=== PATIENT | female | born 1955 | race Asian ===

== ENCOUNTER 2018-10-21 12:20 | Emergency (ER) | payer OTHER ==
[~2018-10-21] VITALS: Ht 152.4 cm; Wt 50.5 kg
[~2018-10-21 12:20] MED LIST: IBUP-1542 PO
[2018-10-21 12:23] VITALS: Ht 152.4 cm; Wt 50.5 kg
[2018-10-21] MEDS ORDERED: ACETAMINOPHEN 325 MG TAB PO STA (12:28)
[2018-10-21] MEDS ORDERED: SODIUM CHLORIDE 0.9% 1L BAG IV* STA (12:28)
[2018-10-21] MEDS ORDERED: KETOROLAC 15 MG INJ IV STA (12:28)
[2018-10-21 13:47] VITALS: BP 128/66; PULSE 97; RESP 18
== END 2018-10-21 14:15 | disposition home or self-care (01) ==
LOC: E/R 12:20
DX: J06.9 Acute upper respiratory infection, unspecified (principal); R00.0 Tachycardia, unspecified; I10 Essential (primary) hypertension; E03.9 Hypothyroidism, unspecified
CPT/HCPCS: 36415; 71045; 80053; 83605; 84484; 85025; 85610; 85730; 87040; 93005; 96374; 99285; J1885; J7030